=== PATIENT | female | born 1935 | race Caucasian/White ===

== ENCOUNTER 2016-11-17 10:45 | Inpatient (IN) | payer MEDICARE ==
[~2016-11-17] VITALS: Ht 160 cm; Wt 59.2 kg
[2016-11-17] VITALS (7 sets, daily range): BP systolic 146–182; BP diastolic 67–83; PULSE 57–88; RESP 17–24; TEMP 97–99.1; O2SAT 95–99
[~2016-11-17 10:45] MED LIST: ASPI81 PO; CALC625 PO; DIPH2.5L PO; FOLI1 PO; LEVO75TA42 PO; LORA-392 PO; MERC50TA PO; MESA1000R PR; OMEP20CA5 PO; ONDA1TAB16 PO; PRED5TAB PO; REST15CA PO; TAB-TAB PO; TYLE500T PO
[2016-11-17] MEDS ORDERED: CLINDAMYCIN PHOS 600 MG/4 ML VIAL IM ONE (11:00)
[2016-11-17] MEDS ORDERED: AMPICILLIN-SULBACTAM INJ 3 GM VIAL IM ONE (11:00)
[2016-11-17] MEDS ORDERED: MORPHINE SULFATE 4 MG/ML INJ IV PUSH ONE (11:00)
[2016-11-17] MEDS ORDERED: SODIUM CHLORIDE 0.9% FLUSH 10 ML FLUSH IVF PRN (11:00)
--- NOTE | 2016-11-17 11:06 | PD ---
HPI Chief Complaint: Injury Time Seen by Provider: 10:55 Travel History International Travel<30 days: No Contact w/Intl Traveler<30days: No Traveled to known affect area: No History of Present Illness HPI C/O LEFT TOE/FOOT PAIN FOR LAST 2 DAYS....PT IS POOR HISTORIAN, AND CAN'T RECALL PCP NAME, MEDS, OR GIVE MUCH DETAILS ABOUT HER TOE PAIN OTHER THAN TODAY IS WORSE PFSH Past Medical History Anemia: Yes Arthritis: Yes (RT. HIP) Autoimmune Disease: No Anxiety: Yes Depression: Yes Cancer: Yes (COLON, SKIN CA) Cardiovascular Problems: Yes High Cholesterol: Yes Cerebrovascular Accident: Yes Diabetes: No Diminished Hearing: No Endocrine: Yes Gastrointestinal Disorders: Yes (CHRONIC COLITIS) GERD: Yes Glaucoma: Yes Genitourinary: Yes Hepatitis: No Hiatal Hernia: No Hypertension: No Immune Disorder: Yes (MS) Implanted Vascular Access Dvce: No Kidney Stones: Yes Musculoskeletal: Yes Neurologic: Yes (MULTIPLE SCLEROSIS- REMISSION- 1990) Psychiatric: Yes Reproductive: No Respiratory: No Immunizations Current: No Thyroid Disease: Yes Menopausal: Yes Ovarian Cysts: Yes (1963) Past Surgical History Abdominal Surgery: Yes (ILEOSTOMY, R INCISIONAL HERNIA REPAIR) Cardiac Surgery: No Cholecystectomy: Yes Ear Surgery: No Endocrine Surgery: No Eye Surgery: No Genitourinary Surgery: Yes (LITHOTRIPSY) Gynecologic Surgery: Yes Hysterectomy: Yes Neurologic Surgery: No Oral Surgery: No Pacemaker: No Thoracic Surgery: Yes (RIGHT BREAST LUMPECTOMY) Other Surgery: Yes (COLON RESECTION NOVEMBER 2008, hernia repair) Social History Alcohol Use: No Tobacco Use: No (quitm in 1974 smoked for 20yrs 1/2 ppd) Substance Use: No Allergies-Medications (Allergen,Severity, Reaction): Coded Allergies: No Known Allergies (Verified , 11/17/16) Reported Meds & Prescriptions Reported Meds & Active Scripts Active Reported Fiber Con (Calcium Polycarbophil) 625 Mg Tab 625 Mg PO BID Tylenol (Acetaminophen) 500 Mg Tab 500 Mg PO Q6H PRN Prednisone 5 Mg Tab 5 Mg PO DAILY Canasa (Mesalamine) 1,000 Mg Sup 1,000 Mg MI HS Folate 1 Mg Tab (Folic Acid) 1 Mg Tab 1 Mg PO DAILY Diphenoxylate/Atropine (Diphenoxylate HCl/Atropine) 2.5 /5 Liq 1 Tab PO Q6- 8HPRN Purinethol (Mercaptopurine) 50 Mg Tab 50 Mg PO BID Zofran Tab (Ondansetron HCl) 4 Mg Tab 4 Mg PO Q6HR PRN Ativan (Lorazepam) 0.5 Mg Tab 0.5 Tab PO TID PRN Levoxyl (Levothyroxine Sodium) 75 Mcg Tab 50 Mcg PO DAILY Aspirin 81 Mg Tab 81 Mg PO DAILY Restoril (Temazepam) 15 Mg Cap 15 Mg PO HS PRN Multivitamin (Multivitamins) 1 Tab Tab 1 Tab PO DAILY Prilosec 20 mg (Omeprazole) 20 Mg Capcr 20 Mg PO DAILY Review of Systems ROS Limitations: Poor Historian Except as stated in HPI: all other systems reviewed are Neg Musculoskeletal: Positive: Edema Skin: Positive Rash (TO LT FOOT, SWELLING AND REDNESS TO IT UNKNOWN PERIOD OF TIME) Physical Exam Narrative GENERAL: SKIN: Warm and dry. HEAD: Atraumatic. Normocephalic. EYES: Pupils equal and round. No scleral icterus. No injection or drainage. ENT: No nasal bleeding or discharge. Mucous membranes pink and moist. NECK: Trachea midline. No JVD. CARDIOVASCULAR: Regular rate and rhythm. RESPIRATORY: No accessory muscle use. Clear to auscultation. Breath sounds equal bilaterally. GASTROINTESTINAL: Abdomen soft, non-tender, nondistended. Hepatic and splenic margins not palpable. MUSCULOSKELETAL: LEFT FOOT DORSUM IS ERYTHEMATOUS AND EDEMATOUS, SECOND DIGIT ON LEFT HAS DISCHARGE AND BASE OF IT SHOWS A WOUND NEUROLOGICAL: Awake and alert. No obvious cranial nerve deficits. Motor grossly within normal limits. Five out of 5 muscle strength in the arms and legs. Normal speech. PSYCHIATRIC: Appropriate mood and affect; insight and judgment normal. Data Data Last Documented VS Vital Signs Date Time Temp Pulse Resp B/P Pulse Ox O2 Delivery O2 Flow Rate FiO2 11/17/16 11:48 64 20 176/83 96 Room Air 11/17/16 10:48 99.1 Orders Complete Blood Count With Diff (11/17/16 11:00) Comprehensive Metabolic Panel (11/17/16 11:00) Blood Culture (11/17/16 11:00) Iv Access Insert/Monitor (11/17/16 11:00) Ecg Monitoring (11/17/16 11:00) Oximetry (11/17/16 11:00) Oxygen Administration (11/17/16 11:00) Chest, Single Ap (11/17/16 11:00) Us Leg Venous Doppler (11/17/16 11:00) Sodium Chloride 0.9% Flush (Ns Flush) (11/17/16 11:00) Ampicillin-Sulbactam Inj (Unasyn Inj) (11/17/16 11:00) Morphine Inj (Morphine Inj) (11/17/16 11:00) Lactic Acid Sepsis Protocol (11/17/16 11:00) Foot, Limited (2vws) (11/17/16 ) Clindamycin Inj (Cleocin Inj) (11/17/16 12:30) Admit Order (Ed Use Only) (11/17/16 14:05) Labs Laboratory Tests Test 11/17/16 11/17/16 11:10 11:22 White Blood Count 11.8 TH/MM3 Red Blood Count 4.28 MIL/MM3 Hemoglobin 13.0 GM/DL Hematocrit 39.4 % Mean Corpuscular Volume 92.1 FL Mean Corpuscular Hemoglobin 30.4 PG Mean Corpuscular Hemoglobin 33.0 % Concent Red Cell Distribution Width 14.3 % Platelet Count 237 TH/MM3 Mean Platelet Volume 7.8 FL Neutrophils (%) (Auto) 86.4 % Lymphocytes (%) (Auto) 5.3 % Monocytes (%) (Auto) 7.5 % Eosinophils (%) (Auto) 0.4 % Basophils (%) (Auto) 0.4 % Neutrophils # (Auto) 10.2 TH/MM3 Lymphocytes # (Auto) 0.6 TH/MM3 Monocytes # (Auto) 0.9 TH/MM3 Eosinophils # (Auto) 0.0 TH/MM3 Basophils # (Auto) 0.0 TH/MM3 CBC Comment AUTO DIFF Differential Total Cells 100 Counted Neutrophils % (Manual) 85 % Band Neutrophils % 2 % Lymphocytes % 7 % Monocytes % 5 % Neutrophils # (Manual) 10.4 TH/MM3 Myelocytes 1 % Differential Comment FINAL DIFF MANUAL Platelet Estimate NORMAL Platelet Morphology Comment NORMAL Red Cell Morphology Comment NORMAL Sodium Level 139 MEQ/L Potassium Level 4.5 MEQ/L Chloride Level 108 MEQ/L Carbon Dioxide Level 22.3 MEQ/L Anion Gap 9 MEQ/L Blood Urea Nitrogen 24 MG/DL Creatinine 1.25 MG/DL Estimat Glomerular Filtration 41 ML/MIN Rate Random Glucose 166 MG/DL Calcium Level 9.9 MG/DL Total Bilirubin 0.6 MG/DL Aspartate Amino Transf 27 U/L (AST/SGOT) Alanine Aminotransferase 27 U/L (ALT/SGPT) Alkaline Phosphatase 71 U/L Total Protein 7.2 GM/DL Albumin 3.3 GM/DL Lactic Acid Level 1.9 mmol/L MDM Medical Decision Making Medical Screen Exam Complete: Yes Emergency Medical Condition: Yes Medical Record Reviewed: Yes Differential Diagnosis DVT, CELLULITIS Narrative Course POOR HISTORIAN SO DIFFICULT TO ASSESS CHRONICITY OF WOUND AND INFECTION...WILL GIVE IV ABX, PAIN MEDICATIOIN AND DVT EXAM. PT WILL NEED ADMISSION Diagnosis Primary Impression: Cellulitis of toe of left foot Admitting Information Admitting Physician Requests: Admit Chacho Perez MD Nov 17, 2016 11:06
[2016-11-17 11:40] LABS: AUTOMATED NEUTROPHIL # 10.2 TH/MM3 (1.8-7.7); BASOPHIL % 0.4 % (0.0-2.0); EOSINOPHIL % 0.4 % (0.0-4.0); HEMATOCRIT 39.4 % (35.0-46.0); LYMPH % 5.3 % (9.0-44.0); LYMPHOCYTE # 0.6 TH/MM3 (1.0-4.8); MEAN CELL VOLUME 92.1 FL (80.0-100.0); MEAN CORPUSCULAR HEMOGLOBIN 30.4 PG (27.0-34.0); MONO % 7.5 % (0.0-8.0); NEUT % 86.4 % (16.0-70.0); PLATELET COUNT 237 TH/MM3 (150-450); RED BLOOD COUNT 4.28 MIL/MM3 (4.00-5.30); RED CELL DISTRIBUTION WIDTH 14.3 % (11.6-17.2); WHITE BLOOD COUNT 11.8 TH/MM3 (4.0-11.0)
[2016-11-17 11:43] LABS: HEMO FLAGS AUTO DIFF
[2016-11-17 12:16] LABS: BANDS 2 % (0-6); MYELOCYTES 1 % (0-0); NEUTROPHIL # MANUAL DIFF 10.4 TH/MM3 (1.8-7.7); POLYS (SEG NEUTROPHILS) 85 % (16-70); WBC DIFF SAMPLE 100
[2016-11-17 12:17] LABS: PLATELET ESTIMATE SMEAR NORMAL (NORMAL); PLATELET MORPHOLOGY NORMAL (NORMAL); SCAN/DIFF FINAL DIFF MANUAL
[2016-11-17 12:29] LABS: ALT (GPT) 27 U/L (10-53)
[2016-11-17] MEDS ORDERED: CLINDAMYCIN INJ 600 MG in SODIUM CHLORIDE 0.9% INJ 100 ML IV ONE (12:30)
[2016-11-17 12:31] LABS: ALKALINE PHOSPHATASE 71 U/L (45-117); ANION GAP 9 MEQ/L (5-15); AST (GOT) 27 U/L (15-37); BICARBONATE 22.3 MEQ/L (21.0-32.0); BLOOD UREA NITROGEN 24 MG/DL (7-18); CHLORIDE 108 MEQ/L (98-107); GLOMERULAR FILTRATION RATE 41 ML/MIN (>89); SODIUM (NA) 139 MEQ/L (136-145); TOTAL BILIRUBIN ADULT 0.6 MG/DL (0.2-1.0)
--- NOTE | 2016-11-17 12:31 | RADRPT ---
EXAM DATE/TIME: 11/17/2016 11:06 [facility] COMPARISON: CHEST PA & LAT, July 11, 2015, 14:59. INDICATIONS : Shortness of breath; possible foor infection. MEDICAL HISTORY : Carcinoma, colon. MS. CVA. GERD. SURGICAL HISTORY : Colon resection. Cholecystectomy. Hernia repair. ENCOUNTER: Initial ACUITY: 1 week PAIN SCORE: 0/10 LOCATION: Bilateral chest FINDINGS: Mild bibasilar airspace disease and slight blunting of the left costophrenic angle consistent with tr shweta pleural effusion versus pleural thickening. Cardiac silhouette is mildly enlarged. Osseous struct ures are intact. CONCLUSION: 1. Mild bibasilar, left greater than right, airspace disease which likely reflects atelectasis althou gh aspiration or developing infection cannot entirely excluded in the appropriate clinical setting. 2. Trace left pleural effusion versus pleural thickening Aldo Mueller MD on November 17, 2016 at 12:27 Board Certified Radiologist. This report was verified electronically.
[2016-11-17 12:50] LABS: POTASSIUM 4.5 MEQ/L (3.5-5.1)
--- NOTE | 2016-11-17 13:25 | RADRPT ---
EXAM DATE/TIME: 11/17/2016 12:30 [facility] COMPARISON: No previous studies available for comparison. INDICATIONS : Left leg swelling and pain. MEDICAL HISTORY : Hypercholesterolemia. Hypothyroidism. Gastroesophageal reflux disease. Glaucoma. CVA. Ovarian cyst s. Kidney stones. Arthritis. Colon cancer. Skin cancer. SURGICAL HISTORY : Cholecystectomy. Hysterectomy. Colon resection. Right breast lumpectomy. ENCOUNTER: Initial ACUITY: 1 day PAIN SCORE: 0/10 LOCATION: Left leg. TECHNIQUE: Venous ultrasound of the leg was performed from the inguinal ligament to the proximal calf. Real-geneva e, color Doppler and spectral tracing, compression and augmentation techniques were used. FINDINGS: There is normal compressibility of the deep venous system from the inguinal region to the proximal ca lf. No echogenic clot is seen in the lumen of the common femoral, femoral, popliteal, and posterior tibial veins. There is a normal response of the venous system to proximal and distal augmentation an d respiration. CONCLUSION: 1. No DVT. 2. Subcutaneous edema involving the calf. Darrion Wayne Jr., MD on November 17, 2016 at 13:22 Board Certified Radiologist. This report was verified electronically.
--- NOTE | 2016-11-17 13:30 | RADRPT ---
EXAM DATE/TIME: 11/17/2016 13:09 [facility] COMPARISON: No previous studies available for comparison. INDICATIONS : Left foot pain, no injury. MEDICAL HISTORY : None. SURGICAL HISTORY : None. ENCOUNTER: Initial ACUITY: 1 week PAIN SCORE: 10/10 LOCATION: Left entire foot FINDINGS: 2 views of the left foot show diffuse osteopenia. No fracture or dislocation. No cortical destruction . Flexion at the PIP joint and extension at the MTP joint of the second toe. Dorsal soft tissue swell ing involving the mid foot. CONCLUSION: Soft tissue swelling and osteopenia. No acute abnormality. Darrion Wayne Jr., MD on November 17, 2016 at 13:26 Board Certified Radiologist. This report was verified electronically.
[2016-11-17] MEDS ORDERED: SODIUM CHLORIDE 0.9% FLUSH 10 ML FLUSH IV FLUSH PRN (14:30)
[2016-11-17] MEDS ORDERED: ACETAMINOPHEN 500 MG CPLT PO PRN (15:00)
[2016-11-17] MEDS ORDERED: MORPHINE SULFATE 4 MG/ML INJ IV PUSH PRN (16:00)
[2016-11-17] MEDS: ACETAMINOPHEN/HYDROcodone 325 MG/5 MG TAB PO PRN (16:08)
[2016-11-17] MEDS ORDERED: Vancomycin Consult Pharmacy 1 EA OTHER SCH (16:15)
[2016-11-17] MEDS ORDERED: ONDANSETRON HCL 4 MG PO PRN (16:30)
[2016-11-17] MEDS ORDERED: TEMAZEPAM 15 MG CAP PO PRN (16:30)
--- NOTE | 2016-11-17 16:30 | HHI.HP ---
[facility] Harmony Desir MD Admission Diagnosis CELLULITIS LEFT 2ND TOE/FOOT R/O OSTEO Diagnoses: Chief Complaint: Pain, swelling and erythema of the left second toe. Travel History International Travel<30 Days: No Contact w/Intl Traveler <30 Da: No Traveled to Known Affected Are: No History of Present Illness 81-year-old female with a medical history significant for osteoarthritis, ulcerative colitis, colon cancer status post resection, colostomy, hypothyroidism who presented to the emergency room with complaint of worsening pain, redness of the wound involving the left second toe. The patient is a very poor historian. Most of the history is obtained from the EMR. She recalls she has been having problems with the toe for the past few weeks. She states that she saw a dairy nutritionist a week ago who will provide padding to the toe. However she has been having worsening pain, redness, and swelling extending to the left foot and the lower leg. She denies any trauma. She denies any fevers or chills. Review of Systems Constitutional: DENIES: Fever, Chills Respiratory: DENIES: Cough, Shortness of breath Cardiovascular: DENIES: Chest pain, Palpitations Gastrointestinal: DENIES: Nausea, Vomiting Musculoskeletal: COMPLAINS OF: Joint pain Integumentary: COMPLAINS OF: Rash Except as stated in HPI: all other systems reviewed are Neg Past Family Social History Past Medical History osteoarthritis, ulcerative colitis, colon cancer status post resection, colostomy, hypothyroidism Past Surgical History Colon resection, colostomy Hernia repair Right breast lumpectomy Hysterectomy Reported Medications Reported Meds & Active Scripts Active Reported Fiber Con (Calcium Polycarbophil) 625 Mg Tab 625 Mg PO BID Tylenol (Acetaminophen) 500 Mg Tab 500 Mg PO Q6H PRN Prednisone 5 Mg Tab 5 Mg PO DAILY Canasa (Mesalamine) 1,000 Mg Sup 1,000 Mg IL HS Folate 1 Mg Tab (Folic Acid) 1 Mg Tab 1 Mg PO DAILY Diphenoxylate/Atropine (Diphenoxylate HCl/Atropine) 2.5 /5 Liq 1 Tab PO Q6- 8HPRN Purinethol (Mercaptopurine) 50 Mg Tab 50 Mg PO BID Zofran Tab (Ondansetron HCl) 4 Mg Tab 4 Mg PO Q6HR PRN Ativan (Lorazepam) 0.5 Mg Tab 0.5 Tab PO TID PRN Levoxyl (Levothyroxine Sodium) 75 Mcg Tab 50 Mcg PO DAILY Aspirin 81 Mg Tab 81 Mg PO DAILY Restoril (Temazepam) 15 Mg Cap 15 Mg PO HS PRN Multivitamin (Multivitamins) 1 Tab Tab 1 Tab PO DAILY Prilosec 20 mg (Omeprazole) 20 Mg Capcr 20 Mg PO DAILY Allergies: Coded Allergies: No Known Allergies (Verified , 11/17/16) Family History Reviewed and noncontributory. Social History No alcohol, or tobacco. Patient lives by herself. Physical Exam Vital Signs Vital Signs Date Time Temp Pulse Resp B/P Pulse Ox O2 Delivery O2 Flow Rate FiO2 11/17/16 15:28 64 17 182/79 99 Room Air 11/17/16 11:48 64 20 176/83 96 Room Air 11/17/16 10:48 99.1 88 20 146/82 97 Room Air Physical Exam GENERAL: Elderly and frail female in no acute distress HEAD: Atraumatic. Normocephalic. No temporal or scalp tenderness. EYES: Pupils equal round and reactive. Extraocular motions intact. No scleral icterus. No injection or drainage. ENT: Nose without bleeding, purulent drainage or septal hematoma. Throat without erythema, tonsillar hypertrophy or exudate. Uvula midline. Airway patent. NECK: Trachea midline. No JVD or lymphadenopathy. Supple, nontender, no meningeal signs. CARDIOVASCULAR: Regular rate and rhythm without murmurs, gallops, or rubs. RESPIRATORY: Clear to auscultation. Breath sounds equal bilaterally. No wheezes , rales, or rhonchi. GASTROINTESTINAL: Abdomen soft, non-tender, nondistended. No hepato-splenomegaly , or palpable masses. No guarding. MUSCULOSKELETAL: Left second toe with extensive swelling, there is a one at the base draining foul-smelling purulence. The toes and foot are exquisitely tender to palpation. Patient admits to having sensation at the tip of the toe. There is erythema and swelling of the left foot. This extends upward to right below the knee. Right lower extremity is normal. NEUROLOGICAL: Awake and alert. Normal speech. At times confused about sequence of event. Laboratory Laboratory Tests Test 11/17/16 11/17/16 11:10 11:22 White Blood Count 11.8 Red Blood Count 4.28 Hemoglobin 13.0 Hematocrit 39.4 Mean Corpuscular Volume 92.1 Mean Corpuscular Hemoglobin 30.4 Mean Corpuscular Hemoglobin 33.0 Concent Red Cell Distribution Width 14.3 Platelet Count 237 Mean Platelet Volume 7.8 Neutrophils (%) (Auto) 86.4 Lymphocytes (%) (Auto) 5.3 Monocytes (%) (Auto) 7.5 Eosinophils (%) (Auto) 0.4 Basophils (%) (Auto) 0.4 Neutrophils # (Auto) 10.2 Lymphocytes # (Auto) 0.6 Monocytes # (Auto) 0.9 Eosinophils # (Auto) 0.0 Basophils # (Auto) 0.0 CBC Comment AUTO DIFF Differential Total Cells 100 Counted Neutrophils % (Manual) 85 Band Neutrophils % 2 Lymphocytes % 7 Monocytes % 5 Neutrophils # (Manual) 10.4 Myelocytes 1 Differential Comment FINAL DIFF MANUAL Platelet Estimate NORMAL Platelet Morphology Comment NORMAL Red Cell Morphology Comment NORMAL Sodium Level 139 Potassium Level 4.5 Chloride Level 108 Carbon Dioxide Level 22.3 Anion Gap 9 Blood Urea Nitrogen 24 Creatinine 1.25 Estimat Glomerular Filtration 41 Rate Random Glucose 166 Calcium Level 9.9 Total Bilirubin 0.6 Aspartate Amino Transf 27 (AST/SGOT) Alanine Aminotransferase 27 (ALT/SGPT) Alkaline Phosphatase 71 Total Protein 7.2 Albumin 3.3 Lactic Acid Level 1.9 Date/Time Procedure Status Source Growth 11/17/16 11:22 Aerobic Blood Culture Received Blood Peripheral Pending 11/17/16 11:22 Anaerobic Blood Culture Received Blood Peripheral Pending Result Diagram: 11/17/16 1110 11/17/16 1110 Imaging Last Impressions Lower Extremity Ultrasound 11/17/16 1100 Signed Impressions: Service Date/Time: November 12:30 - CONCLUSION: 1. No DVT. 2. Subcutaneous edema involving the calf. Darrion Wayne Jr., MD Chest X-Ray 11/17/16 1100 Signed Impressions: Service Date/Time: November 11:06 - CONCLUSION: 1. Mild bibasilar, left greater than right, airspace disease which likely reflects atelectasis although aspiration or developing infection cannot entirely excluded in the appropriate clinical setting. 2. Trace left pleural effusion versus pleural thickening Aldo Mueller MD Foot X-Ray 11/17/16 0000 Signed Impressions: Service Date/Time: November 13:09 - CONCLUSION: Soft tissue swelling and osteopenia. No acute abnormality. Darrion Wayne Jr., MD Assessment and Plan Problem List: (1) Cellulitis of toe of left foot ICD Code: L03.032 Status: Acute (2) CHERIE (acute kidney injury) ICD Code: N17.9 Status: Acute (3) Hypothyroid ICD Code: E03.9 Status: Acute (4) GERD (gastroesophageal reflux disease) ICD Code: K21.9 Status: Acute (5) Anxiety ICD Code: F41.9 Status: Acute Assessment and Plan 81-year-old female who presented with extensive cellulitis involving the second toe on the left, foot and LE. She also has a wound at the base of the toe that needs debridement. Labs indicate acute kidney injury. Wound/cellulitis of the second toe/foot: X-ray shows soft tissue swelling. Doppler negative for DVT. Unclear for how long the infection has been ongoing. The patient is unable to articulate this. Certainly needs debridement. Need to rule out osteomyelitis. Podiatry consulted. Will defer to the patient 's dairy nutritionist who she reportedly saw a week ago. Given how extensive the wound is, will cover with broad-spectrum antibiotics vancomycin and Zosyn. Follow progress and de-escalate as indicated. Acute kidney injury: Labs on record does not indicated a history of CKD. Likely prerenal azotemia from dehydration Gentle IV hydration. Repeat labs in the morning Ulcerative colitis, colostomy - Continue home dose mesalamine, mercaptopurine, prednisone. -Heart healthy diet as tolerated Elevated blood pressure: Secondary to pain. Patient denies any history of hypertension. Clonidine as needed. Continue to monitor BP. Hypothyroidism - Continue Synthroid GERD - Continue PPI Anxiety - Ativan when necessary GI prophylaxis: PPI. Stool softener PRN constipation. DVT PPx: Heparin Discussed Condition With ER physician. Physician Certification 2 Midnight Certification Type: Admission for Inpatient Services Order for Inpatient Services The services are ordered in accordance with Medicare regulations or non- Medicare payer requirements, as applicable. In the case of services not specified as inpatient-only, they are appropriately provided as inpatient services in accordance with the 2-midnight benchmark. Estimated LOS (days): 3 days is the estimated time the patient will need to remain in the hospital, assuming treatment plan goals are met and no additional complications. Post-Hospital Plan: Not yet determined Karime Smith MD Nov 17, 2016 16:29
[2016-11-17] MEDS ORDERED: cloNIDine HCL 0.1 MG TAB PO PRN (16:45)
[2016-11-17] MEDS ORDERED: FOLI400T PO (18:06)
[2016-11-17] MEDS ORDERED: FERR200T PO (18:06)
[2016-11-17] MEDS ORDERED: CANA10002 RECTAL (18:06)
[2016-11-17] MEDS ORDERED: MERC50TA PO (18:06)
[2016-11-17] MEDS ORDERED: DIPH2.5T14 PO (18:06)
[2016-11-17] MEDS ORDERED: LORA-373 PO (18:06)
[2016-11-17] MEDS ORDERED: FIBE625T10 PO (18:06)
[2016-11-17] MEDS ORDERED: LEVO50TA53 PO (18:06)
[2016-11-17] MEDS ORDERED: ASPI81CH CHEW (18:06)
[2016-11-17] MEDS ORDERED: MULTTAB67 PO (18:07)
[2016-11-17] MEDS ORDERED: OMEP20TA PO (18:07)
[2016-11-17] MEDS ORDERED: WELC625T2 PO (18:07)
[2016-11-17] MEDS ORDERED: TEMA15CA PO (18:07)
[2016-11-17] MEDS ORDERED: LIDOCAINE HCL 1% 50 ML VIAL ONE (18:26)
[2016-11-17] MEDS ORDERED: MUPIROCIN 2% OINT 22 GM TUBE TOPICAL ONE (18:30)
[2016-11-17] MEDS ORDERED: LIDOCAINE HCL 1% 20 ML VIAL INFIL ONE (18:30)
[2016-11-17] MEDS: SODIUM CHLOR 0.9% 1000 ML INJ 1,000 ML IV SCH (19:00)
[2016-11-17] MEDS ORDERED: PHARMACY ORDERED LAB ONE (19:30)
[2016-11-17] MEDS ORDERED: VANCOMYCIN INJ 1,000 MG in SODIUM CHLOR 0.9% 250 ML INJ 250 ML IV ONE (20:00)
[2016-11-17] MEDS: SODIUM CHLORIDE 0.9% FLUSH 10 ML FLUSH IV FLUSH SCH (21:00)
[2016-11-17] MEDS: PIPERACIL-TAZO 3.375 GM PREMIX 50 ML IV SCH (23:43)
[2016-11-17] MEDS: MERCAPTOPURINE 50 MG TAB PO SCH ×2 (23:47→23:55)
[2016-11-17] MEDS: MESALAMINE 1000 MG SUPP RECTAL SCH (23:48)
[2016-11-17] MEDS: CALCIUM POLYCARBOPHIL 625 MG TAB PO SCH (23:48)
[2016-11-17] MEDS: HEPARIN SODIUM - SQ 10,000 UNITS/ML VIAL SQ SCH (23:49)
[2016-11-18] VITALS (7 sets, daily range): BP systolic 116–186; BP diastolic 61–90; PULSE 69–79; RESP 17–21; TEMP 96.4–98.4; O2SAT 94–97
[2016-11-18] MEDS: ACETAMINOPHEN/HYDROcodone 325 MG/5 MG TAB PO PRN ×2 (01:34→22:42)
[2016-11-18] MEDS: LORazepam 0.5 MG TAB PO PRN ×2 (01:34→22:42)
[2016-11-18] MEDS: LEVOTHYROXINE SODIUM 50 MCG TAB PO SCH (06:50)
[2016-11-18] MEDS: PIPERACIL-TAZO 3.375 GM PREMIX 50 ML IV SCH ×3 (06:50→20:00)
[2016-11-18 08:13] LABS: AUTOMATED NEUTROPHIL # 8.5 TH/MM3 (1.8-7.7); BASOPHIL # 0.1 TH/MM3 (0-0.2); BASOPHIL % 1.2 % (0.0-2.0); EOSINOPHIL # 0.1 TH/MM3 (0-0.4); EOSINOPHIL % 0.5 % (0.0-4.0); HEMATOCRIT 39.7 % (35.0-46.0); HEMO FLAGS DIFF FINAL; LYMPH % 5.7 % (9.0-44.0); LYMPHOCYTE # 0.6 TH/MM3 (1.0-4.8); MEAN CORPUSCULAR HEMOGLOBIN 30.8 PG (27.0-34.0); MEAN CORPUSCULAR HGB CONC 33.5 % (32.0-36.0); MONO % 8.5 % (0.0-8.0); NEUT % 84.1 % (16.0-70.0); PLATELET COUNT 191 TH/MM3 (150-450); RED BLOOD COUNT 4.31 MIL/MM3 (4.00-5.30); RED CELL DISTRIBUTION WIDTH 14.3 % (11.6-17.2); WHITE BLOOD COUNT 10.1 TH/MM3 (4.0-11.0)
[2016-11-18] MEDS: HEPARIN SODIUM - SQ 10,000 UNITS/ML VIAL SQ SCH ×2 (08:21→22:41)
[2016-11-18] MEDS: FOLIC ACID 1 MG TAB PO SCH (08:21)
[2016-11-18] MEDS: CALCIUM POLYCARBOPHIL 625 MG TAB PO SCH ×2 (08:21→22:42)
[2016-11-18] MEDS: ASPIRIN 81 MG CHEW TAB PO SCH (08:21)
[2016-11-18] MEDS: predniSONE 5 MG TAB PO SCH (08:21)
[2016-11-18] MEDS: MULTIVITAMIN TAB PO SCH (08:21)
[2016-11-18] MEDS: MERCAPTOPURINE 50 MG TAB PO SCH ×2 (08:24→21:00)
[2016-11-18] MEDS: SODIUM CHLORIDE 0.9% FLUSH 10 ML FLUSH IV FLUSH SCH ×2 (08:27→21:00)
[2016-11-18] MEDS: PANTOPRAZOLE SOD 20 MG DELAYED RELEASE TAB PO SCH (08:27)
[2016-11-18] MEDS ORDERED: OMEPRAZOLE 20 MG PO SCH (09:00)
[2016-11-18] MEDS: ONDANSETRON ODT 4 MG TAB PO PRN (09:29)
[2016-11-18] MEDS: SODIUM CHLOR 0.9% 1000 ML INJ 1,000 ML IV SCH ×2 (09:56→18:50)
--- NOTE | 2016-11-18 10:06 | MB ---
cc: REE QURESHI DATE OF CONSULTATION 11/17/2016 CHIEF COMPLAINT Left foot second digit pain. HISTORY OF PRESENT ILLNESS Mrs. Moore is an 81-year-old female who appears to have some short-term memory issues but after much conversation, she was able to tell me that the left second digit has been a painful hammer toe for several months now and she saw Dr. Edouard about a week and a half ago and he provided her with a hammertoe splint that she could wear to have more comfort. The splint is an elastic style splint that wraps around the toe. She kept this splint on 24 hours a day 7 days a week until today. She stated that it hurt, but she felt like she should keep wearing it. She reports to the ER today with severe pain in the second digit. The elastic splint was left in place and not removed in the ER. She was sent to the floor to her room and a routine consult was placed for podiatry. The patient's only complaint is pain. She denies any nausea, vomiting, headaches, fevers or chills. PAST MEDICAL HISTORY 1. Osteoarthritis 2. Ulcerative colitis 3. Colon cancer 4. Hypothyroidism PAST SURGICAL HISTORY 1. Colon resection with colostomy 2. Hernia repair 3. Right breast lumpectomy 4. Hysterectomy MEDICATIONS Please see list. ALLERGIES NO KNOWN DRUG ALLERGIES. FAMILY HISTORY Noncontributory SOCIAL HISTORY The patient denies any alcohol or drug abuse. She lives at home alone. Her nearest family lives in [place]. VITAL SIGNS Temperature is 97.0, pulse is 57, respiratory rate is 16, blood pressure 162/79, pulse ox 97% O2 on room air. LABORATORY DATA White count is 11.8, hemoglobin is 13.0, hematocrit 39.4, platelets 237. Sodium 139, potassium 4.5, chloride 108, carbon dioxide 22.3, BUN 24, creatinine 1.25. Blood cultures are pending. Foot x-rays are negative for any gas in the soft tissues or signs of cortical erosion. There is dislocation at the PIPJ of the second digit. PHYSICAL EXAMINATION The patient has bilateral DP and PT palpable pulses. Cap fill time less than thee seconds. Gross sensation is intact. The right foot is unremarkable. The left foot has a second digit MPJ dislocation where the second digit is crossing over onto the hallux. There is an elastic hammertoe splint imbedded through the patient's skin. She cannot tolerated it being touched, but after a digital block was applied, I was able to remove it. A small portion of the tissue that had bubbled up over the elastic is ulcerated, however, there is no exposed bone and the underlying tissue is healthy. There is erythema extending to the level of the mid foot as well as swelling to the foot. ASSESSMENT/PLAN 1)Left foot second digit stage II ulceration. -I explained to the patient that the splint was only meant to be used when she is in close toed shoes to alleviate pressure. Leaving it on for so long created a tourniquet effect around the toe. I cannot be certain as to how her vascularity will respond. -We will continue to monitor her over the next 24-48 hours. -The wounds do appear healthy and we will treat them accordingly. -Continue antibiotics as ordered. -Nurses are aware of how to replace the dressings if they fall off as I applied them loosely to avoid any constricture. PROCEDURE The foot was cleansed with sterile alcohol and injected with 10 mL 1% lidocaine plain around the base of the second digit. The elastic tourniquet was then cut and the pieces were removed. The open lesions area was cleaned of eschar debris and then cleaned with alcohol wipes. A sterile dressing Xeroform and 4x4 gauze was loosely applied to the digit. The patient tolerated the procedure well. Cap fill time remained normal throughout the procedure. There was a nurse present as a witness. This same nurse, Johanne, was educated on dressing changes if the patient were to have any issues with the dressing throughout the evening. Ree CHAU/BERNARD /6:51 PM /9:40 AM JOIE
[2016-11-18 10:28] LABS: BICARBONATE 29.9 MEQ/L (21.0-32.0); POTASSIUM 3.7 MEQ/L (3.5-5.1)
--- NOTE | 2016-11-18 11:29 | HHI.PR ---
Subjective Remarks Patient reports significant improvement in pain, redness, and swelling of the left second toe and the foot. Podiatry debridement the wound at the bedside. Significant improvement compared to yesterday. Objective Vitals Vital Signs Date Time Temp Pulse Resp B/P Pulse Ox O2 Delivery O2 Flow Rate FiO2 11/18/16 08:30 79 137/88 11/18/16 08:00 96.4 69 17 186/85 96 11/18/16 07:50 170/90 11/18/16 06:15 97.7 70 20 154/65 96 11/17/16 23:45 98.4 66 19 160/67 95 11/17/16 20:45 97.7 64 18 162/79 95 11/17/16 17:53 162/79 11/17/16 17:32 16 11/17/16 16:00 97.0 57 24 181/77 97 11/17/16 15:28 64 17 182/79 99 Room Air 11/17/16 11:48 64 20 176/83 96 Room Air I/O 11/17/16 11/17/16 11/17/16 11/18/16 11/18/16 11/18/16 07:00 15:00 23:00 07:00 15:00 23:00 Intake Total 850 ml 400 ml Output Total 100 ml 300 ml Balance 750 ml 100 ml Intake Oral 850 ml 400 ml Output Stool Total 100 ml 300 ml # Voids 2 4 Result Diagram: 11/18/16 0733 11/18/16 0934 Imaging Last Impressions Lower Extremity Ultrasound 11/17/16 1100 Signed Impressions: Service Date/Time: November 12:30 - CONCLUSION: 1. No DVT. 2. Subcutaneous edema involving the calf. Darrion Wayne Jr., MD Chest X-Ray 11/17/16 1100 Signed Impressions: Service Date/Time: November 11:06 - CONCLUSION: 1. Mild bibasilar, left greater than right, airspace disease which likely reflects atelectasis although aspiration or developing infection cannot entirely excluded in the appropriate clinical setting. 2. Trace left pleural effusion versus pleural thickening Aldo Mueller MD Foot X-Ray 11/17/16 0000 Signed Impressions: Service Date/Time: November 13:09 - CONCLUSION: Soft tissue swelling and osteopenia. No acute abnormality. Darrion Wayne Jr., MD Objective Remarks GENERAL: Elderly female in no apparent distress. CARDIOVASCULAR: Normal rate and regular rhythm without murmurs, gallops, or rubs. RESPIRATORY: Good respiratory efforts. Breath sounds equal and clear to auscultation bilaterally. GASTROINTESTINAL: Abdomen soft, non-tender, non-distended. Normal active bowel sounds MUSCULOSKELETAL: Left second toe status post debridement has a clean dressing. There is a wound at the base of the left second toe. Erythema and swelling of the foot and lower extremity have pretty much resolved. NEURO: Alert & Oriented x4 to person, place, time, situation. Moves all ext x4 PSYCH: Appropriate mood and affect. A/P Problem List: (1) Cellulitis of toe of left foot ICD Code: L03.032 Status: Acute (2) CHERIE (acute kidney injury) ICD Code: N17.9 Status: Acute (3) Hypothyroid ICD Code: E03.9 Status: Acute (4) GERD (gastroesophageal reflux disease) ICD Code: K21.9 Status: Acute (5) Anxiety ICD Code: F41.9 Status: Acute Assessment and Plan 81-year-old female who presented with extensive cellulitis involving the second toe on the left, foot and LE. Wound/cellulitis of the second toe/foot: X-ray shows soft tissue swelling. Doppler negative for DVT. Appreciate podiatry following. Significant improvement since the wound was debrided at bedside. Surrounding cellulitis quickly resolving. We'll continue IV antibiotics for another 24 hours. Consider discharge on oral antibiotics tomorrow if cleared by podiatry. Acute kidney injury: Labs on record does not indicated a history of CKD. Likely prerenal azotemia from dehydration. Resolved with IV fluid. Avoid nephrotoxins. Ulcerative colitis, colostomy - Continue home dose mesalamine, mercaptopurine, prednisone. -Heart healthy diet as tolerated Elevated blood pressure: Secondary to pain. Patient denies any history of hypertension. Blood pressure improved. Clonidine as needed. Continue to monitor BP. Hypothyroidism - Continue Synthroid GERD - Continue PPI Anxiety - Ativan when necessary GI prophylaxis: PPI. Stool softener PRN constipation. DVT PPx: Heparin Discharge Planning Possible discharge tomorrow if cleared by podiatry. Karime Smith MD Nov 18, 2016 11:29
--- NOTE | 2016-11-18 17:15 | PD.POD ---
Subjective Podiatric Problems Patient states that she is having much less sharp pain in the toe. She denies any n/v/f/h/sob. She is concerned about going home because of the wound and because she has not tried to put weight on the foot for several days. Pain score: 4 Past Med/Surg/Social History Social History Smoking Status: Former Smoker Objective Vital Signs Vital Signs Date Time Temp Pulse Resp B/P Pulse Ox O2 Delivery O2 Flow Rate FiO2 11/18/16 16:00 97.4 71 17 116/61 94 11/18/16 12:00 97.1 75 17 139/64 97 Manual Cuff/Auscultation 11/18/16 08:30 79 137/88 11/18/16 08:00 96.4 69 17 186/85 96 11/18/16 07:50 170/90 11/18/16 06:15 97.7 70 20 154/65 96 11/17/16 23:45 98.4 66 19 160/67 95 11/17/16 20:45 97.7 64 18 162/79 95 11/17/16 17:53 162/79 11/17/16 17:32 16 Coded Allergies: No Known Allergies (Verified , 11/17/16) Physical Exam Remarks Left second webspace ulceration 1cm x 0.4cm x 0.5cm, fibro granular base, thelma wound erythema, no drainage, no malodor Remainder of exam is unchanged from initial consultation Assessment & Plan A/P 1) stage II ulcer left foot with improving cellulitis -daily dressing changes -cont iv abx, suggest 7-10 days of broad spectrum po abx at discharge -pt contsult pending - WBAT in surgical shoe -I explained to the patient that I can not determine the viability of the toe with full certainty at this time. It is something that will need to be monitored over the next weeks as an outpatient. It is showing improvement and she can likely be discharged monday or monday. She will need HHC at time of discharge. Isidra Blanc DPM Nov 18, 2016 17:15
--- NOTE | 2016-11-18 17:17 | HHI.FF ---
Face to Face Verification Diagnosis: (1) Cellulitis of toe of left foot Physical Therapy Order: Evaluate and Treat, Improve ambulation, Strength and gait training Home Health Nursing Order: Wound care and dressing changes (Daily dressing changes with bacitracin to ulcer and light gauze coverage) I have seen patient Meenu Moore on 11/18/16. My clinical findings support the need for the requested home health care services because: Deconditioned w/ increased weakness Limited ability to care for self High risk of falls Infection w/ risk of complications I certify that my clinical findings support that this patient is homebound because: Impaired cognitive ability/safety Unsteady gait/balance Unsafe to leave home unassisted Isidra Blanc DPM Nov 18, 2016 17:17
[2016-11-18] MEDS: MESALAMINE 1000 MG SUPP RECTAL SCH (21:00)
[2016-11-19] VITALS: BP 142/79; PULSE 75; RESP 18; TEMP 98.6; O2SAT 94
[2016-11-19] MEDS ORDERED: VANCOMYCIN INJ 700 MG in SODIUM CHLOR 0.9% 250 ML INJ 250 ML IV SCH ×3 (06:30)
[2016-11-19 06:39] VITALS: BP 175/84; PULSE 65; RESP 20; TEMP 96.7; O2SAT 93
[2016-11-19] MEDS: SODIUM CHLOR 0.9% 1000 ML INJ 1,000 ML IV SCH ×3 (06:45→21:22)
[2016-11-19] MEDS: LEVOTHYROXINE SODIUM 50 MCG TAB PO SCH (06:48)
[2016-11-19 08:21] VITALS: BP 172/81; PULSE 61; RESP 18; TEMP 97.4; O2SAT 94
[2016-11-19] MEDS: MERCAPTOPURINE 50 MG TAB PO SCH ×2 (09:00→21:00)
[2016-11-19] MEDS: SODIUM CHLORIDE 0.9% FLUSH 10 ML FLUSH IV FLUSH SCH ×2 (09:00→21:23)
[2016-11-19] MEDS: CALCIUM POLYCARBOPHIL 625 MG TAB PO SCH ×3 (09:12→21:04)
[2016-11-19] MEDS: FOLIC ACID 1 MG TAB PO SCH (09:12)
[2016-11-19] MEDS: MULTIVITAMIN TAB PO SCH (09:12)
[2016-11-19] MEDS: PANTOPRAZOLE SOD 20 MG DELAYED RELEASE TAB PO SCH (09:12)
[2016-11-19] MEDS: predniSONE 5 MG TAB PO SCH (09:13)
[2016-11-19] MEDS: HEPARIN SODIUM - SQ 10,000 UNITS/ML VIAL SQ SCH ×2 (09:13→21:06)
[2016-11-19] MEDS: ASPIRIN 81 MG CHEW TAB PO SCH (09:13)
[2016-11-19 12:00] VITALS: BP 137/75; PULSE 67; RESP 18; TEMP 98.5; O2SAT 97
[2016-11-19] MEDS ORDERED: LEVO750T3 PO (12:46)
[2016-11-19] MEDS ORDERED: AMLO5 PO (12:46)
[2016-11-19] MEDS ORDERED: HYDR-3516 PO (12:46)
[2016-11-19] MEDS ORDERED: LORA-373 PO (12:46)
--- NOTE | 2016-11-19 12:46 | HHI.DS ---
Discharge Summary Admission Date Nov 17, 2016 at 14:07 Discharge Date: Nov 20, 2016 Admitting Diagnosis CELLULITIS LEFT 2ND TOE/FOOT R/O OSTEO (1) Cellulitis of toe of left foot ICD Code: L03.032 (2) CHERIE (acute kidney injury) ICD Code: N17.9 (3) Hypothyroid ICD Code: E03.9 (4) GERD (gastroesophageal reflux disease) ICD Code: K21.9 (5) Anxiety ICD Code: F41.9 Procedures Bedside debridement of toe wound. Brief History - From Admission 81-year-old female with a medical history significant for osteoarthritis, ulcerative colitis, colon cancer status post resection, colostomy, hypothyroidism who presented to the emergency room with complaint of worsening pain, redness of the wound involving the left second toe. The patient is a very poor historian. Most of the history is obtained from the EMR. She recalls she has been having problems with the toe for the past few weeks. She states that she saw a senior electronics technician a week ago who will provide padding to the toe. However she has been having worsening pain, redness, and swelling extending to the left foot and the lower leg. She denies any trauma. She denies any fevers or chills. CBC/BMP: 11/18/16 0733 11/19/16 0827 Significant Findings Laboratory Tests Test 11/17/16 11/18/16 11/18/16 11/19/16 11:10 07:33 09:34 08:27 White Blood Count 11.8 TH/MM3 (4.0-11.0) Neutrophils (%) (Auto) 86.4 % 84.1 % (16.0-70.0) (16.0-70.0) Lymphocytes (%) (Auto) 5.3 % 5.7 % (9.0-44.0) (9.0-44.0) Neutrophils # (Auto) 10.2 TH/MM3 8.5 TH/MM3 (1.8-7.7) (1.8-7.7) Lymphocytes # (Auto) 0.6 TH/MM3 0.6 TH/MM3 (1.0-4.8) (1.0-4.8) Neutrophils % (Manual) 85 % (16-70) Lymphocytes % 7 % (9-44) Neutrophils # (Manual) 10.4 TH/MM3 (1.8-7.7) Myelocytes 1 % (0-0) Chloride Level 108 MEQ/L (98-107) Blood Urea Nitrogen 24 MG/DL (7-18) Creatinine 1.25 MG/DL 1.02 MG/DL (0.50-1.00) (0.50-1.00) Estimat Glomerular Filtration 41 ML/MIN (>89) 61 ML/MIN (>89) 52 ML/MIN (>89) Rate Random Glucose 166 MG/DL 126 MG/DL (74-106) (74-106) Albumin 3.3 GM/DL (3.4-5.0) Monocytes (%) (Auto) 8.5 % (0.0-8.0) Erythrocyte Sedimentation Rate 39 mm/hr (0-30) Anion Gap 4 MEQ/L (5-15) C-Reactive Protein 6.93 MG/DL (0.00-0.30) Imaging Last Impressions Lower Extremity Ultrasound 11/17/16 1100 Signed Impressions: Service Date/Time: November 12:30 - CONCLUSION: 1. No DVT. 2. Subcutaneous edema involving the calf. Darrion Wayne Jr., MD Chest X-Ray 11/17/16 1100 Signed Impressions: Service Date/Time: November 11:06 - CONCLUSION: 1. Mild bibasilar, left greater than right, airspace disease which likely reflects atelectasis although aspiration or developing infection cannot entirely excluded in the appropriate clinical setting. 2. Trace left pleural effusion versus pleural thickening Aldo Mueller MD Foot X-Ray 11/17/16 0000 Signed Impressions: Service Date/Time: November 13:09 - CONCLUSION: Soft tissue swelling and osteopenia. No acute abnormality. Darrion Wayne Jr., MD PE at Discharge GENERAL: Elderly female in no apparent distress. CARDIOVASCULAR: Normal rate and regular rhythm without murmurs, gallops, or rubs. RESPIRATORY: Good respiratory efforts. Breath sounds equal and clear to auscultation bilaterally. GASTROINTESTINAL: Abdomen soft, non-tender, non-distended. Normal active bowel sounds MUSCULOSKELETAL: Left second toe status post debridement has a clean dressing. There is a wound at the base of the left second toe. Erythema and swelling of the foot and lower extremity have pretty much resolved. NEURO: Alert & Oriented x4 to person, place, time, situation. Moves all ext x4 PSYCH: Appropriate mood and affect. Pt update on day of discharge Patient reports she is feeling much better. No longer having any swelling of the left lower extremity, erythema resolving. Pain is controlled. Hospital Course 81-year-old female who presented with extensive cellulitis involving the second toe on the left, foot and LE. Evaluation and treatment course detailed below: Wound/cellulitis of the second toe/foot: X-ray shows soft tissue swelling. Doppler negative for DVT. Patient was followed by podiatry. She underwent bedside debridement of the wound. Surrounding cellulitis quickly resolving. Patient was treated with IV vancomycin and Zosyn. She was discharged to longterm facility on Levaquin. Dressing changes per podiatry. She will follow-up outpatient with podiatry. Acute kidney injury: Labs on record does not indicated a history of CKD. Likely prerenal azotemia from dehydration. Resolved with IV fluid. Ulcerative colitis, colostomy - Continue home dose mesalamine, mercaptopurine, prednisone. -Heart healthy diet as tolerated Hypertension: No known history of hypertension. Patient's blood pressure remained elevated despite adequate pain control. She was started on Norvasc. Blood pressure improved. Hypothyroidism - Continue Synthroid GERD - Continue PPI Anxiety - Ativan when necessary GI prophylaxis: PPI. Stool softener PRN constipation. Pt Condition on Discharge: Stable Discharge Disposition: Discharge to SNF Discharge Time: > 30 minutes Discharge Instructions DIET: Follow Instructions for: Heart Healthy Diet Activities you can perform: Regular-No Restrictions, See Additionl Instruction Other Activity Instructions: Per PT Follow up Referrals: Podiatry - 1 Week @ [facility] with Isidra Blanc DPM New Medications: Levofloxacin (Levofloxacin) 750 Mg Tablet 750 MG PO DAILY Infection #7 Ref 0 TAB Amlodipine (Norvasc) 5 Mg Tab 5 MG PO DAILY #30 TAB Hydrocodone-Acetaminophen (Hydrocodone-Acetaminophen) 5-325 mg Tab 1 TAB PO Q4H PRN PAIN SCALE 5 TO 10 #30 TAB Continued Medications: Aspirin (Aspirin) 81 Mg Chew 81 MG CHEW DAILY Ref 0 TAB Calcium Polycarbophil (Fiber) 625 Mg Tab 1250 MG PO PRN CONSTIPATION Ref 0 TAB Colesevelam (Welchol) 625 Mg Tab 1875 MG PO BID Hyperlipidemia,type 2 diabetes #0 Ref 0 TAB Diphenoxylate-Atropine (Diphenoxylate-Atropine) 2.5-0.025 Mg Tab 1 TAB PO Q6H PRN DIARRHEA Ref 0 TAB Ferrous Sulfate (Feosol) 200 Mg Tab 325 MG PO DAILY Nutritional Supplement #0 Ref 0 TAB Folic Acid (Folic Acid) 400 Mcg Tab 1 MG PO DAILY Nutritional Supplement Ref 0 TAB Levothyroxine (Levoxyl) 50 Mcg Tab 50 MCG PO DAILY Thyroid #0 Ref 0 TAB Lorazepam (Lorazepam) 0.5 Mg Tab 0.5 MG PO Q8H PRN ANXIETY #30 Ref 0 TAB (This prescription has been renewed) Mercaptopurine (Mercaptopurine) 50 Mg Tab 50 MG PO DAILY Chemotherapy Management Ref 0 TAB Mesalamine Supp (Canasa Supp) 1,000 Mg Supp 1000 MG RECTAL HS Ulcerative proctitis #0 Ref 0 SUPP Multiple Vitamin (Multiple Vitamin) 1 Tab 1 TAB PO DAILY Nutritional Supplement Ref 0 TAB Omeprazole (Omeprazole) 20 Mg Tab 20 MG PO DAILY #0 Ref 0 TAB Temazepam (Temazepam) 15 Mg Cap 15 MG PO HS PRN INSOMNIA #0 Ref 0 CAP Karime Smith MD Nov 19, 2016 12:46
[2016-11-19 16:00] VITALS: BP 155/75; PULSE 69; RESP 18; TEMP 98; O2SAT 98
[2016-11-19] MEDS: PIPERACIL-TAZO 3.375 GM PREMIX 50 ML IV SCH ×2 (16:50→21:04)
[2016-11-19] MEDS: amLODIPine BESYLATE 5 MG TAB PO SCH (16:51)
[2016-11-19 20:08] VITALS: BP 132/72; PULSE 78; RESP 20; TEMP 97.3; O2SAT 98
[2016-11-19] MEDS: MESALAMINE 1000 MG SUPP RECTAL SCH (21:00)
[2016-11-20 00:11] VITALS: BP 140/78; PULSE 88; RESP 22; TEMP 98.4; O2SAT 97
[2016-11-20] MEDS: PIPERACIL-TAZO 3.375 GM PREMIX 50 ML IV SCH ×2 (02:00→08:57)
[2016-11-20 04:17] VITALS: BP 149/68; PULSE 80; RESP 20; TEMP 98.7; O2SAT 98
[2016-11-20] MEDS ORDERED: VANCOMYCIN INJ 750 MG in SODIUM CHLOR 0.9% 250 ML INJ 250 ML IV SCH (06:00)
[2016-11-20] MEDS: LEVOTHYROXINE SODIUM 50 MCG TAB PO SCH (06:35)
[2016-11-20] MEDS: ONDANSETRON ODT 4 MG TAB PO PRN (06:35)
[2016-11-20] MEDS: predniSONE 5 MG TAB PO SCH (08:19)
[2016-11-20] MEDS: ASPIRIN 81 MG CHEW TAB PO SCH (08:19)
[2016-11-20] MEDS: MULTIVITAMIN TAB PO SCH (08:19)
[2016-11-20] MEDS: CALCIUM POLYCARBOPHIL 625 MG TAB PO SCH (08:20)
[2016-11-20] MEDS: FOLIC ACID 1 MG TAB PO SCH (08:20)
[2016-11-20] MEDS: PANTOPRAZOLE SOD 20 MG DELAYED RELEASE TAB PO SCH (08:20)
[2016-11-20] MEDS: HEPARIN SODIUM - SQ 10,000 UNITS/ML VIAL SQ SCH (08:23)
[2016-11-20 08:27] VITALS: BP 161/81; PULSE 65; RESP 18; TEMP 96.9; O2SAT 97
[2016-11-20] MEDS: SODIUM CHLORIDE 0.9% FLUSH 10 ML FLUSH IV FLUSH SCH (08:43)
[2016-11-20] MEDS: MERCAPTOPURINE 50 MG TAB PO SCH (08:56)
[2016-11-20] MEDS: amLODIPine BESYLATE 5 MG TAB PO SCH (08:56)
--- NOTE | 2016-11-20 14:58 | HHI.PR ---
Subjective Remarks Patient seen earlier this morning around 9 AM. She reports she is feeling well. Anxious to go to SNF for rehabilitation. Pain is controlled. Objective Vitals Vital Signs Date Time Temp Pulse Resp B/P Pulse Ox O2 Delivery O2 Flow Rate FiO2 11/20/16 08:27 96.9 65 18 161/81 97 11/20/16 04:17 98.7 80 20 149/68 98 11/20/16 00:11 98.4 88 22 140/78 97 11/19/16 20:08 97.3 78 20 132/72 98 11/19/16 16:00 98.0 69 18 155/75 98 I/O 11/19/16 11/19/16 11/19/16 11/20/16 11/20/16 11/20/16 07:00 15:00 23:00 07:00 15:00 23:00 Intake Total 240 ml 1042 ml 240 ml Output Total 800 ml 400 ml Balance 240 ml 242 ml -160 ml Intake Oral 240 ml 420 ml 240 ml IV Total 622 ml Output Urine Total 800 ml 400 ml # Voids 2 2 # Bowel Movements 0 Result Diagram: 11/18/16 0733 11/19/16 0827 Objective Remarks GENERAL: Elderly female in no apparent distress. CARDIOVASCULAR: Normal rate and regular rhythm without murmurs, gallops, or rubs. RESPIRATORY: Good respiratory efforts. Breath sounds equal and clear to auscultation bilaterally. GASTROINTESTINAL: Abdomen soft, non-tender, non-distended. Normal active bowel sounds MUSCULOSKELETAL: Left second toe status post debridement has a clean dressing. There is a wound at the base of the left second toe. Erythema and swelling of the foot and lower extremity have pretty much resolved. NEURO: Alert & Oriented x4 to person, place, time, situation. Moves all ext x4 PSYCH: Appropriate mood and affect. Procedures Bedside debridement of toe wound. A/P Problem List: (1) Cellulitis of toe of left foot ICD Code: L03.032 Status: Acute (2) CHERIE (acute kidney injury) ICD Code: N17.9 Status: Acute (3) Hypothyroid ICD Code: E03.9 Status: Acute (4) GERD (gastroesophageal reflux disease) ICD Code: K21.9 Status: Acute (5) Anxiety ICD Code: F41.9 Status: Acute Assessment and Plan 81-year-old female who presented with extensive cellulitis involving the second toe on the left, foot and LE. Wound/cellulitis of the second toe/foot: X-ray shows soft tissue swelling. Doppler negative for DVT. Appreciate podiatry following. Significant improvement since the wound was debrided at bedside. Surrounding cellulitis quickly resolving. Levaquin on discharge. Outpatient follow-up with podiatry Acute kidney injury: Labs on record does not indicated a history of CKD. Likely prerenal azotemia from dehydration. Resolved with IV fluid. Avoid nephrotoxins. Ulcerative colitis, colostomy - Continue home dose mesalamine, mercaptopurine, prednisone. -Heart healthy diet as tolerated Hypertension: No known history of hypertension. However BP remained elevated despite adequate pain control. Patient started on Norvasc with improvement of blood pressure. Hypothyroidism - Continue Synthroid GERD - Continue PPI Anxiety - Ativan when necessary GI prophylaxis: PPI. Stool softener PRN constipation. DVT PPx: Heparin Discharge Planning Discharge to SNF today. Karime Smith MD Nov 20, 2016 14:58
[2016-11-22] MEDS ORDERED: PHARMACY ORDERED LAB ONE (05:45)
== END 2016-11-20 12:47 | DRG 603 ==
LOC: NEPC 10:45 → NEDA 14:07 → N05A 16:01
PROVIDERS: ADMIT Family Medicine; ATTEND Family Medicine
PROC: 0HDNXZZ Extraction of Left Foot Skin, External Approach (ICD-10-PCS; principal; 2016-11-17)
DX: L03.032 Cellulitis of left toe (principal); N17.9 Acute kidney failure, unspecified; K51.90 Ulcerative colitis, unspecified, without complications; L03.116 Cellulitis of left lower limb; E86.0 Dehydration; L97.529 Non-pressure chronic ulcer of other part of left foot with unspecified severity; F32.9 Major depressive disorder, single episode, unspecified; F41.9 Anxiety disorder, unspecified; M16.11 Unilateral primary osteoarthritis, right hip; Z85.038 Personal history of other malignant neoplasm of large intestine; Z85.828 Personal history of other malignant neoplasm of skin; Z86.73 Personal history of transient ischemic attack (TIA), and cerebral infarction without residual deficits; K21.9 Gastro-esophageal reflux disease without esophagitis; Z87.891 Personal history of nicotine dependence; Z79.82 Long term (current) use of aspirin; E03.9 Hypothyroidism, unspecified; Z93.3 Colostomy status; I10 Essential (primary) hypertension; M20.42 Other hammer toe(s) (acquired), left foot
CPT/HCPCS: 71010; 73620; 76937; 80048; 80053; 82565; 83605; 85007; 85025; 85027; 85652; 86140; 87040; 93971; 96365; 96372; 96375; J0295; J1644; J2270; J2543; J3370; J7030; J7050; J7512; L3260

== ENCOUNTER 2017-04-18 10:03 | Emergency (ER) | payer MEDICARE ==
[~2017-04-18] VITALS: Ht 160 cm; Wt 58.0 kg
[~2017-04-18 10:03] MED LIST changes: +AMLO5 PO; +ASPI-516 CHEW; -ASPI81 PO; -CALC625 PO; +CANA10002 RECTAL; +COLE625 PO; -DIPH2.5L PO; +DIPH2.5T14 PO; +FERR200T PO; +FIBE625T10 PO; -FOLI1 PO; +FOLI400T PO; +HYDR-3516 PO; +LEVO50TA53 PO; +LEVO750T3 PO; -LEVO75TA42 PO; -LORA-392 PO; +LORA0.5T PO; -MESA1000R PR; +MULTTAB67 PO; -OMEP20CA5 PO; +OMEP20TA93 PO; -ONDA1TAB16 PO; -PRED5TAB PO; -REST15CA PO; -TAB-TAB PO; +TEMA15CA PO; -TYLE500T PO
[2017-04-18 10:16] VITALS: BP 111/63; PULSE 63; RESP 16; TEMP 98.3; O2SAT 97
[2017-04-18] MEDS ORDERED: LEVO75TA3 PO (10:50)
[2017-04-18] MEDS ORDERED: LOMO2.5T PO (10:50)
[2017-04-18] MEDS ORDERED: ZOFR8TAB PO (10:50)
[2017-04-18] MEDS ORDERED: METR-1 PO (10:50)
[2017-04-18] MEDS ORDERED: SODIUM CHLOR 0.9% 1000 ML INJ 1,000 ML IV ONE (11:00)
--- NOTE | 2017-04-18 11:01 | PD ---
HPI Chief Complaint: GI Complaint Time Seen by Provider: 10:46 Travel History International Travel<30 days: No Contact w/Intl Traveler<30days: No Traveled to known affect area: No History of Present Illness HPI This is an 82-year-old female who presents to the emergency department with 4 days of increased ostomy output, generalized weakness, lightheadedness and dizziness. She thinks she is dehydrated. She has had some nausea this morning and took Zofran. She denies any fevers or chills, has not noticed any blood in her stool, and has not vomited. The patient has a remote history of colon cancer 10 years ago at which point she had a colostomy placed. She also has a history of ulcerative colitis. PFSH Past Medical History Anemia: Yes Arthritis: Yes (RT. HIP) Anxiety: Yes Depression: Yes Cancer: Yes (COLON, SKIN CA) Cardiovascular Problems: Yes High Cholesterol: Yes Chemotherapy: No Chest Pain: No Congestive Heart Failure: No Cerebrovascular Accident: Yes Diabetes: No Diminished Hearing: No Endocrine: Yes Gastrointestinal Disorders: Yes (CHRONIC COLITIS) GERD: Yes Glaucoma: Yes Genitourinary: Yes Hepatitis: No Hiatal Hernia: No Hypertension: No Immune Disorder: Yes Implanted Vascular Access Dvce: No Kidney Stones: Yes Musculoskeletal: Yes Neurologic: Yes (MULTIPLE SCLEROSIS- REMISSION- 1990) Psychiatric: Yes Reproductive: No Respiratory: No Immunizations Current: Yes Renal Failure: No Thyroid Disease: Yes Ulcer: No Menopausal: Yes Ovarian Cysts: Yes (1963) Past Surgical History Abdominal Surgery: Yes (ILEOSTOMY, R INCISIONAL HERNIA REPAIR) Cardiac Surgery: No Cholecystectomy: Yes Ear Surgery: No Endocrine Surgery: No Eye Surgery: No Genitourinary Surgery: Yes (LITHOTRIPSY) Gynecologic Surgery: Yes Hysterectomy: Yes Neurologic Surgery: No Oral Surgery: No Pacemaker: No Thoracic Surgery: Yes (RIGHT BREAST LUMPECTOMY) Other Surgery: Yes (COLON RESECTION NOVEMBER 2008, hernia repair) Social History Alcohol Use: No Tobacco Use: No (quitm in 1974 smoked for 20yrs 1/2 ppd) Substance Use: No Allergies-Medications (Allergen,Severity, Reaction): Coded Allergies: No Known Allergies (Verified Adverse Reaction, Unknown, 04/18/17) Reported Meds & Prescriptions Reported Meds & Active Scripts Active Lorazepam 0.5 Mg Tab 0.5 Mg PO Q8H PRN Reported Flagyl (Metronidazole) 500 Mg Tab 500 Mg PO TID Levothyroxine (Levothyroxine Sodium) 75 Mcg Tab 75 Mcg PO DAILY Zofran (Ondansetron HCl) 8 Mg Tab 8 Mg PO QID Lomotil (Diphenoxylate-Atropine) 2.5-0.025 Mg Tab 1 Tab PO Q6H PRN Multiple Vitamin 1 Tab 1 Tab PO DAILY Welchol (Colesevelam HCl) 625 Mg Tab 1,875 Mg PO BID Temazepam 15 Mg Cap 15 Mg PO HS PRN Omeprazole 20 Mg Tab 20 Mg PO DAILY Mercaptopurine 50 Mg Tab 50 Mg PO DAILY Folic Acid 400 Mcg Tab 1 Mg PO DAILY Fiber (Calcium Polycarbophil) 625 Mg Tab 1,250 Mg PO PRN Feosol (Ferrous Sulfate) 200 Mg Tab 325 Mg PO DAILY Canasa Supp (Mesalamine) 1,000 Mg Supp 1,000 Mg RECTAL HS Aspirin 81 Mg Chew 81 Mg CHEW DAILY Review of Systems Except as stated in HPI: all other systems reviewed are Neg Physical Exam Narrative GENERAL: Frail elderly female in no acute distress. SKIN: Dry with skin tenting. HEAD: Atraumatic. Normocephalic. EYES: Pupils equal and round. No injection or drainage. ENT: Moist mucous membranes NECK: Trachea midline. CARDIOVASCULAR: Regular rate and rhythm. No murmur appreciated. RESPIRATORY: Clear to auscultation. Breath sounds equal bilaterally. GASTROINTESTINAL: Abdomen soft, non-tender, nondistended. Ostomy is patent and productive MUSCULOSKELETAL: No obvious deformities. NEUROLOGICAL: Awake and alert. No obvious cranial nerve deficits. Moving all extremities. PSYCHIATRIC: Appropriate mood and affect; insight and judgment normal. Data Data Last Documented VS Vital Signs Date Time Temp Pulse Resp B/P (MAP) Pulse Ox O2 Delivery O2 Flow Rate FiO2 04/18/17 11:49 53 16 148/70 (96) 98 04/18/17 10:16 98.3 Orders Orders Urinalysis - C+S If Indicated (04/18/17 10:06) Complete Blood Count With Diff (04/18/17 10:49) Comprehensive Metabolic Panel (04/18/17 10:49) Magnesium (Mg) (04/18/17 10:49) Sodium Chlor 0.9% 1000 Ml Inj (Ns 1000 M (04/18/17 11:00) Labs Laboratory Tests Test 04/18/17 11:10 White Blood Count 4.8 TH/MM3 Red Blood Count 3.81 MIL/MM3 Hemoglobin 11.2 GM/DL Hematocrit 33.2 % Mean Corpuscular Volume 87.0 FL Mean Corpuscular Hemoglobin 29.3 PG Mean Corpuscular Hemoglobin Concent 33.7 % Red Cell Distribution Width 15.3 % Platelet Count 297 TH/MM3 Mean Platelet Volume 7.2 FL Neutrophils (%) (Auto) 77.3 % Lymphocytes (%) (Auto) 11.4 % Monocytes (%) (Auto) 10.2 % Eosinophils (%) (Auto) 0.9 % Basophils (%) (Auto) 0.2 % Neutrophils # (Auto) 3.8 TH/MM3 Lymphocytes # (Auto) 0.5 TH/MM3 Monocytes # (Auto) 0.5 TH/MM3 Eosinophils # (Auto) 0.0 TH/MM3 Basophils # (Auto) 0.0 TH/MM3 CBC Comment DIFF FINAL Differential Comment Blood Urea Nitrogen 19 MG/DL Creatinine 0.90 MG/DL Random Glucose 94 MG/DL Total Protein 6.7 GM/DL Albumin 3.3 GM/DL Calcium Level 9.8 MG/DL Magnesium Level 2.5 MG/DL Alkaline Phosphatase 76 U/L Aspartate Amino Transf (AST/SGOT) 14 U/L Alanine Aminotransferase (ALT/SGPT) 17 U/L Total Bilirubin 0.3 MG/DL Sodium Level 140 MEQ/L Potassium Level 4.3 MEQ/L Chloride Level 107 MEQ/L Carbon Dioxide Level 26.4 MEQ/L Anion Gap 7 MEQ/L Estimat Glomerular Filtration Rate 60 ML/MIN MDM Medical Decision Making Medical Screen Exam Complete: Yes Emergency Medical Condition: Yes Interpretation(s) Afebrile, no tachycardia, normotensive No leukocytosis Electrolytes are reassuring Differential Diagnosis Dehydration, hypokalemia, renal insufficiency Narrative Course This is an 82-year-old female who presents to the emergency department with increasing ostomy output. She is concerned she may be dehydrated. She's been feeling a little lightheaded and dizzy. She appears well and exam. Labs are reassuring. She was given a liter of IV fluid. I think she can continue to orally hydrate and follow up with her GI doctor as an outpatient. Diagnosis Primary Impression: Dehydration Patient Instructions: General Instructions Additional Instructions: If you develop severe or worsening abdominal pain, fever>100.4, persistent vomiting or inability to eat or drink return to the emergency department immediately. Follow up with your primary care physician in 1-2 days for a check-up. Med/Other Pt SpecificInfo: No Change to Meds Disposition: 01 DISCHARGE HOME Condition: Stable Dory Matthew MD Apr 18, 2017 11:01
[2017-04-18 11:25] LABS: AUTOMATED NEUTROPHIL # 3.8 TH/MM3 (1.8-7.7); BASOPHIL % 0.2 % (0.0-2.0); EOSINOPHIL % 0.9 % (0.0-4.0); HEMATOCRIT 33.2 % (35.0-46.0); HEMO FLAGS DIFF FINAL; LYMPH % 11.4 % (9.0-44.0); LYMPHOCYTE # 0.5 TH/MM3 (1.0-4.8); MEAN CORPUSCULAR HEMOGLOBIN 29.3 PG (27.0-34.0); MEAN CORPUSCULAR HGB CONC 33.7 % (32.0-36.0); MONO % 10.2 % (0.0-8.0); NEUT % 77.3 % (16.0-70.0); PLATELET COUNT 297 TH/MM3 (150-450); RED BLOOD COUNT 3.81 MIL/MM3 (4.00-5.30); RED CELL DISTRIBUTION WIDTH 15.3 % (11.6-17.2); WHITE BLOOD COUNT 4.8 TH/MM3 (4.0-11.0)
[2017-04-18 11:32] LABS: CHLORIDE 107 MEQ/L (98-107); POTASSIUM 4.3 MEQ/L (3.5-5.1); SODIUM (NA) 140 MEQ/L (136-145)
[2017-04-18 11:36] LABS: ANION GAP 7 MEQ/L (5-15); BICARBONATE 26.4 MEQ/L (21.0-32.0); BLOOD UREA NITROGEN 19 MG/DL (7-18); MAGNESIUM 2.5 MG/DL (1.5-2.5)
[2017-04-18 11:39] LABS: ALT (GPT) 17 U/L (10-53); AST (GOT) 14 U/L (15-37); GLOMERULAR FILTRATION RATE 60 ML/MIN (>89)
[2017-04-18 11:41] LABS: TOTAL BILIRUBIN ADULT 0.3 MG/DL (0.2-1.0)
[2017-04-18 11:42] LABS: ALKALINE PHOSPHATASE 76 U/L (45-117)
[2017-04-18 11:49] VITALS: BP 148/70; PULSE 53; RESP 16; O2SAT 98
== END 2017-04-18 12:53 | disposition home or self-care (01) ==
LOC: PHED 10:03
DX: E86.0 Dehydration (principal); Z85.038 Personal history of other malignant neoplasm of large intestine; Z87.891 Personal history of nicotine dependence
CPT/HCPCS: 80053; 83735; 85025; 99283; J7030

== ENCOUNTER 2017-05-07 14:02 | Emergency (ER) | payer MEDICARE ==
[~2017-05-07] VITALS: Ht 160 cm; Wt 56.9 kg
[~2017-05-07 14:02] MED LIST changes: -AMLO5 PO; -DIPH2.5T14 PO; -HYDR-3516 PO; -LEVO50TA53 PO; -LEVO750T3 PO; +LEVO75TA3 PO; +LOMO2.5T PO; +METR-1 PO; +ZOFR8TAB PO
[2017-05-07 14:35] VITALS: BP 156/84; PULSE 63; RESP 16; TEMP 98.1; O2SAT 94
--- NOTE | 2017-05-07 15:26 | PD ---
HPI Chief Complaint: General Weakness Time Seen by Provider: 15:22 Travel History International Travel<30 days: No Contact w/Intl Traveler<30days: No Traveled to known affect area: No History of Present Illness HPI Patient presents with complaints of cold intolerance. Diagnoses approximately 3 weeks ago of dehydration. Concerns that she is currently dehydrated. Past medical history for hypothyroidism anxiety hyperlipidemia GERD and iron deficiency anemia. Reports chronic right shoulder pain with recommendations by her PCP whom she called today for of x-rays. Denies any chest pain shortness of breath urinary or bowel symptoms. Denies any nausea vomiting diarrhea or fever. Multiple medications, patient is on sure which ones she takes her doesn' t take. She did not bring her medications. PFSH Past Medical History Anemia: Yes Arthritis: Yes (RT. HIP) Anxiety: Yes Depression: Yes Cancer: Yes (COLON, SKIN CA) Cardiovascular Problems: Yes High Cholesterol: Yes Chemotherapy: No Chest Pain: No Congestive Heart Failure: No Cerebrovascular Accident: Yes Diabetes: No Diminished Hearing: No Endocrine: Yes Gastrointestinal Disorders: Yes (CHRONIC COLITIS) GERD: Yes Glaucoma: Yes Genitourinary: Yes Hepatitis: No Hiatal Hernia: No Hypertension: No Immune Disorder: Yes Implanted Vascular Access Dvce: No Kidney Stones: Yes Medical other: No Musculoskeletal: Yes Neurologic: Yes (MULTIPLE SCLEROSIS- REMISSION- 1990) Psychiatric: Yes Reproductive: No Respiratory: No Immunizations Current: Yes Renal Failure: No Thyroid Disease: Yes Ulcer: No ?: Not Menopausal: Yes Ovarian Cysts: Yes (1963) Past Surgical History Abdominal Surgery: Yes (ILEOSTOMY, R INCISIONAL HERNIA REPAIR) Cardiac Surgery: No Cholecystectomy: Yes Ear Surgery: No Endocrine Surgery: No Eye Surgery: No Genitourinary Surgery: Yes (LITHOTRIPSY) Gynecologic Surgery: Yes Hysterectomy: Yes Neurologic Surgery: No Oral Surgery: No Pacemaker: No Thoracic Surgery: Yes (RIGHT BREAST LUMPECTOMY) Other Surgery: Yes (COLON RESECTION NOVEMBER 2008, hernia repair) Social History Alcohol Use: No Tobacco Use: No (quitm in 1974 smoked for 20yrs 1/2 ppd) Substance Use: No Allergies-Medications (Allergen,Severity, Reaction): Coded Allergies: No Known Allergies (Verified Adverse Reaction, Unknown, 05/07/17) Reported Meds & Prescriptions Reported Meds & Active Scripts Active Lorazepam 0.5 Mg Tab 0.5 Mg PO Q8H PRN Reported Levothyroxine (Levothyroxine Sodium) 75 Mcg Tab 75 Mcg PO DAILY Zofran (Ondansetron HCl) 8 Mg Tab 8 Mg PO QID Lomotil (Diphenoxylate-Atropine) 2.5-0.025 Mg Tab 1 Tab PO Q6H PRN Multiple Vitamin 1 Tab 1 Tab PO DAILY Welchol (Colesevelam HCl) 625 Mg Tab 1,875 Mg PO BID Temazepam 15 Mg Cap 15 Mg PO HS PRN Omeprazole 20 Mg Tab 20 Mg PO DAILY Mercaptopurine 50 Mg Tab 50 Mg PO DAILY Folic Acid 400 Mcg Tab 1 Mg PO DAILY Fiber (Calcium Polycarbophil) 625 Mg Tab 1,250 Mg PO PRN Feosol (Ferrous Sulfate) 200 Mg Tab 325 Mg PO DAILY Canasa Supp (Mesalamine) 1,000 Mg Supp 1,000 Mg RECTAL HS Aspirin 81 Mg Chew 81 Mg CHEW DAILY Review of Systems ROS Limitations: Other: (cold intolerance) General / Constitutional: No: Fever Eyes: No: Visual changes HENT: No: Headaches Cardiovascular: No: Chest Pain or Discomfort Respiratory: No: Shortness of Breath Gastrointestinal: No: Abdominal Pain Genitourinary: No: Dysuria Musculoskeletal: No: Pain Skin: No Rash Neurologic: No: Weakness Psychiatric: No: Depression Endocrine: No: Polydipsia Hematologic/Lymphatic: No: Easy Bruising Physical Exam Narrative GENERAL: Well-nourished, well-developed patient. SKIN: Focused skin assessment warm/dry. HEAD: Normocephalic. EYES: No scleral icterus. No injection or drainage. Oral mucosa pink moist and healthy in appearance NECK: Supple, trachea midline. No JVD or lymphadenopathy. CARDIOVASCULAR: Regular rate and rhythm without murmurs, gallops, or rubs. RESPIRATORY: Breath sounds equal bilaterally. No accessory muscle use. GASTROINTESTINAL: Abdomen soft, non-tender, nondistended. MUSCULOSKELETAL: No cyanosis, or edema. BACK: Nontender without obvious deformity. No CVA tenderness. Data Data Last Documented VS Vital Signs Date Time Temp Pulse Resp B/P (MAP) Pulse Ox O2 Delivery O2 Flow Rate FiO2 05/07/17 14:52 16 05/07/17 14:35 98.1 63 156/84 (108) 94 Orders Orders Complete Blood Count With Diff (05/07/17 15:22) Basic Metabolic Panel (Bmp) (05/07/17 15:22) Thyroid Stimulating Hormone (05/07/17 15:22) Shoulder, Limited(2vws) (05/07/17 ) Ns (Bolus) Inj (05/07/17 16:30) Labs Laboratory Tests Test 05/07/17 15:20 White Blood Count 6.6 TH/MM3 Red Blood Count 4.15 MIL/MM3 Hemoglobin 11.6 GM/DL Hematocrit 35.5 % Mean Corpuscular Volume 85.5 FL Mean Corpuscular Hemoglobin 27.9 PG Mean Corpuscular Hemoglobin Concent 32.6 % Red Cell Distribution Width 15.1 % Platelet Count 341 TH/MM3 Mean Platelet Volume 7.6 FL Neutrophils (%) (Auto) 83.1 % Lymphocytes (%) (Auto) 7.7 % Monocytes (%) (Auto) 8.2 % Eosinophils (%) (Auto) 0.8 % Basophils (%) (Auto) 0.2 % Neutrophils # (Auto) 5.5 TH/MM3 Lymphocytes # (Auto) 0.5 TH/MM3 Monocytes # (Auto) 0.5 TH/MM3 Eosinophils # (Auto) 0.1 TH/MM3 Basophils # (Auto) 0.0 TH/MM3 CBC Comment DIFF FINAL Differential Comment Blood Urea Nitrogen 25 MG/DL Creatinine 1.10 MG/DL Random Glucose 88 MG/DL Calcium Level 9.8 MG/DL Sodium Level 140 MEQ/L Potassium Level 4.2 MEQ/L Chloride Level 106 MEQ/L Carbon Dioxide Level 27.2 MEQ/L Anion Gap 7 MEQ/L Estimat Glomerular Filtration Rate 48 ML/MIN Thyroid Stimulating Hormone 3rd Gen 4.120 uIU/ML MDM Medical Decision Making Medical Screen Exam Complete: Yes Emergency Medical Condition: Yes Differential Diagnosis Anxiety, dehydration, anemia, uncontrolled thyroid Narrative Course Assessment and plan discussed with patient at bedside. Right shoulder films reveal no findings. Osteopenia. Benign appearing cystic change in the humeral head. Patient received a small amount of IV fluids. Labs noted. TSH noted to be slightly subacute. Diagnosis Primary Impression: Mild renal insufficiency Additional Impressions: Cold intolerance Hypothyroid Qualified Codes: E03.9 - Hypothyroidism, unspecified Patient Instructions: General Instructions Departure Forms: Tests/Procedures Additional Instructions: Encouraged to increase fluids, encouraged to ensure with meals, encouraged warm clothing in these fluctuating temperatures, Synthroid adjusted slightly, Tylenol for right shoulder pain. Encouraged to follow-up with her PCP. Encouraged to return to emergency room with any onset of new symptoms. Med/Other Pt SpecificInfo: Prescription(s) given, Existing Med Changed Scripts Levothyroxine (Levothyroxine) 88 Mcg Tab 88 MCG PO DAILY for Thyroid, #30 TAB 0 Refills Prov: Tomer Deluna MD 05/07/17 Disposition: 01 DISCHARGE HOME Condition: Good Tomer Deluna MD May 07, 2017 15:26
[2017-05-07 15:33] LABS: AUTOMATED NEUTROPHIL # 5.5 TH/MM3 (1.8-7.7); BASOPHIL % 0.2 % (0.0-2.0); EOSINOPHIL # 0.1 TH/MM3 (0-0.4); EOSINOPHIL % 0.8 % (0.0-4.0); HEMATOCRIT 35.5 % (35.0-46.0); HEMO FLAGS DIFF FINAL; LYMPH % 7.7 % (9.0-44.0); LYMPHOCYTE # 0.5 TH/MM3 (1.0-4.8); MEAN CELL VOLUME 85.5 FL (80.0-100.0); MEAN CORPUSCULAR HEMOGLOBIN 27.9 PG (27.0-34.0); MEAN CORPUSCULAR HGB CONC 32.6 % (32.0-36.0); MONO % 8.2 % (0.0-8.0); NEUT % 83.1 % (16.0-70.0); PLATELET COUNT 341 TH/MM3 (150-450); RED BLOOD COUNT 4.15 MIL/MM3 (4.00-5.30); RED CELL DISTRIBUTION WIDTH 15.1 % (11.6-17.2); WHITE BLOOD COUNT 6.6 TH/MM3 (4.0-11.0)
[2017-05-07 15:40] LABS: POTASSIUM 4.2 MEQ/L (3.5-5.1)
[2017-05-07 15:43] LABS: BICARBONATE 27.2 MEQ/L (21.0-32.0)
--- NOTE | 2017-05-07 15:50 | RADRPT ---
EXAM DATE/TIME: 05/07/2017 15:23 CORRECTION Corrected on: May 09, 2017; fixed date and time [facility] COMPARISON: No previous studies available for comparison. INDICATIONS : Right shoulder pain. MEDICAL HISTORY : None. SURGICAL HISTORY : None. ENCOUNTER: Initial ACUITY: 1 day PAIN SCORE: 7/10 LOCATION: Right upper extremity FINDINGS: Two view examination of the right shoulder demonstrates no evidence of fracture or dislocation. The glenohumeral and acromioclavicular joints are maintained. Bony mineralization is decreased. CONCLUSION: 1. No acute findings. Osteopenia. Benign-appearing cystic change in the humeral head. Samuel Gipson MD on May 07, 2017 at 15:46 Board Certified Radiologist. Board Certified Radiologist. This report was verified electronically.
[2017-05-07] MEDS ORDERED: SODIUM CHLORID 0.9% 500 ML INJ 500 ML IV ONE (16:30)
[2017-05-07] MEDS ORDERED: LEVO88TA2 PO (16:33)
[2017-05-07 17:14] VITALS: BP 169/89
== END 2017-05-07 17:33 | disposition home or self-care (01) ==
LOC: PHED 14:02
DX: N28.9 Disorder of kidney and ureter, unspecified (principal); E03.9 Hypothyroidism, unspecified; E78.00 Pure hypercholesterolemia, unspecified; M25.511 Pain in right shoulder
CPT/HCPCS: 73030; 80048; 84443; 85025; 99284; J7040

== ENCOUNTER 2017-06-23 19:07 | Emergency (ER) | payer MEDICARE ==
[~2017-06-23] VITALS: Ht 160 cm; Wt 60.0 kg
[~2017-06-23 19:07] MED LIST changes: +LEVO88TA2 PO; -METR-1 PO
[2017-06-23 19:27] VITALS: BP 182/76; PULSE 80; RESP 16; TEMP 99.2; O2SAT 95
--- NOTE | 2017-06-23 21:42 | RADRPT ---
EXAM DATE/TIME: 06/23/2017 20:59 [facility] COMPARISON: No previous studies available for comparison. INDICATIONS : Left mandible pain. No known injury. MEDICAL HISTORY : Hypercholesterolemia. Hypothyroidism. Gastroesophageal reflux disease, Glaucoma. CVA. Ovarian cysts. Kidney stones. Arthritis. Colon cancer. Skin cancer SURGICAL HISTORY : Cholecystectomy. Hysterectomy. Colon resection. Right breast lumpectomy ENCOUNTER: Initial ACUITY: 1 day PAIN SCORE: 9/10 LOCATION: Left facial FINDINGS: 3 views of the mandible. No fracture identified. No evidence of bone erosion. Alignment within normal limits. CONCLUSION: No evidence of fracture. Patient is edentulous. Baldemar Thrasher MD on June 23, 2017 at 21:39 Board Certified Radiologist. This report was verified electronically.
--- NOTE | 2017-06-23 22:06 | PD ---
HPI Chief Complaint: Oral / Dental Pain or Problem Time Seen by Provider: 21:59 Travel History International Travel<30 days: No Contact w/Intl Traveler<30days: No Traveled to known affect area: No History of Present Illness HPI The patient is an 82-year-old female that was eating dinner at 6 PM when she cannot close her mouth. She does have some slight left-sided TMJ discomfort. She has never dislocated her mandible before and denies any direct trauma to the mandible today. PFSH Past Medical History Anemia: Yes Arthritis: Yes (RT. HIP) Anxiety: Yes Depression: Yes Cancer: Yes (COLON, SKIN CA) Cardiovascular Problems: Yes High Cholesterol: Yes Cerebrovascular Accident: Yes Diminished Hearing: Yes Endocrine: Yes Gastrointestinal Disorders: Yes (CHRONIC COLITIS) GERD: Yes Glaucoma: Yes Genitourinary: Yes Immune Disorder: Yes Kidney Stones: Yes Musculoskeletal: Yes Neurologic: Yes (MULTIPLE SCLEROSIS- REMISSION- 1990) Psychiatric: Yes Immunizations Current: Yes Thyroid Disease: Yes Menopausal: Yes Ovarian Cysts: Yes (1963) Past Surgical History Abdominal Surgery: Yes (ILEOSTOMY, R INCISIONAL HERNIA REPAIR) Cholecystectomy: Yes Genitourinary Surgery: Yes (LITHOTRIPSY) Gynecologic Surgery: Yes Hysterectomy: Yes Thoracic Surgery: Yes (RIGHT BREAST LUMPECTOMY) Other Surgery: Yes (COLON RESECTION NOVEMBER 2008, hernia repair) Social History Alcohol Use: No Tobacco Use: No (quit in 1974 smoked for 20yrs /2 ppd) Substance Use: No Allergies-Medications (Allergen,Severity, Reaction): Coded Allergies: No Known Allergies (Verified Adverse Reaction, Unknown, 06/23/17) Reported Meds & Prescriptions Reported Meds & Active Scripts Active Levothyroxine (Levothyroxine Sodium) 88 Mcg Tab 88 Mcg PO DAILY Lorazepam 0.5 Mg Tab 0.5 Mg PO Q8H PRN Reported Levothyroxine (Levothyroxine Sodium) 75 Mcg Tab 75 Mcg PO DAILY Zofran (Ondansetron HCl) 8 Mg Tab 8 Mg PO QID Lomotil (Diphenoxylate-Atropine) 2.5-0.025 Mg Tab 1 Tab PO Q6H PRN Multiple Vitamin 1 Tab 1 Tab PO DAILY Welchol (Colesevelam HCl) 625 Mg Tab 1,875 Mg PO BID Temazepam 15 Mg Cap 15 Mg PO HS PRN Omeprazole 20 Mg Tab 20 Mg PO DAILY Mercaptopurine 50 Mg Tab 50 Mg PO DAILY Folic Acid 400 Mcg Tab 1 Mg PO DAILY Fiber (Calcium Polycarbophil) 625 Mg Tab 1,250 Mg PO PRN Feosol (Ferrous Sulfate) 200 Mg Tab 325 Mg PO DAILY Canasa Supp (Mesalamine) 1,000 Mg Supp 1,000 Mg RECTAL HS Aspirin 81 Mg Chew 81 Mg CHEW DAILY Review of Systems Except as stated in HPI: all other systems reviewed are Neg Physical Exam Narrative GENERAL: Well-nourished, well-developed patient in slight apparent distress with her mandible discomfort. SKIN: Focused skin assessment warm/dry. HEAD: Normocephalic. EYES: No scleral icterus. No injection or drainage. NECK: Supple, trachea midline. No JVD or lymphadenopathy. CARDIOVASCULAR: Regular rate and rhythm without murmurs, gallops, or rubs. RESPIRATORY: Breath sounds equal bilaterally. No accessory muscle use. GASTROINTESTINAL: Abdomen soft, non-tender, nondistended. MUSCULOSKELETAL: No cyanosis, or edema. BACK: Nontender without obvious deformity. No CVA tenderness. ENT: There is tenderness over the left TMJ area and she cannot close her mouth together. Despite normal x-rays, this appears clinically as an anterior dislocation of the left mandible. Data Data Last Documented VS Vital Signs Date Time Temp Pulse Resp B/P (MAP) Pulse Ox O2 Delivery O2 Flow Rate FiO2 06/23/17 19:27 99.2 80 16 182/76 (111) 95 Orders Orders Mandible, Ltd (Less Than 4vws) (06/23/17 ) [facility] Medical Decision Making Medical Screen Exam Complete: Yes Emergency Medical Condition: Yes Medical Record Reviewed: Yes Interpretation(s) X-rays read by radiologist as negative but she does have an anterior dislocation of the left mandible. Differential Diagnosis Dislocation mandible, fracture mandible Narrative Course The patient has a mandible dislocation on the left. It was easily reduced with considerable relief to the patient. She has osteoporosis and is edentulous but review of the x-rays does show a anterior dislocation of the left mandible. Procedures Procedure Narrative With gloved hands, the patient is edentulous I relocated the mandible and she felt much better afterwards. The mandible was anteriorly dislocated. Diagnosis Primary Impression: Closed dislocation of mandible Additional Instructions: The mandible could dislocate again of COPD her mouth very wide like a big yawn. We will be glad to see again if you have any problems. Med/Other Pt SpecificInfo: No Change to Meds Disposition: 01 DISCHARGE HOME Condition: Albert Langston MD Jun 23, 2017 22:06
== END 2017-06-23 22:22 | disposition home or self-care (01) ==
LOC: PHEFT 19:07
DX: S03.02XA Dislocation of jaw, left side, initial encounter (principal); X58.XXXA Exposure to other specified factors, initial encounter; D64.9 Anemia, unspecified; E78.00 Pure hypercholesterolemia, unspecified; K52.89 Other specified noninfective gastroenteritis and colitis; K21.9 Gastro-esophageal reflux disease without esophagitis; E07.9 Disorder of thyroid, unspecified; Z87.39 Personal history of other diseases of the musculoskeletal system and connective tissue; Z86.73 Personal history of transient ischemic attack (TIA), and cerebral infarction without residual deficits; Z87.448 Personal history of other diseases of urinary system; Z86.69 Personal history of other diseases of the nervous system and sense organs
CPT/HCPCS: 21480; 70100